=== PATIENT | female | born 1990 | race Caucasian/White ===

== ENCOUNTER 2017-03-04 00:43 | Emergency (ER) | payer OTHER ==
[~2017-03-04] VITALS: Ht 170.2 cm; Wt 90.0 kg
[2017-03-04 00:45] VITALS: BP 124/71; PULSE 91; RESP 16; O2SAT 98
--- NOTE | 2017-03-04 01:02 | ED.REPORT ---
HPI-Preg Under 20 Weeks Date of Service March 04, 2017 ED Provider: Marcelo Diggs MD A 14 week 26 year old female with no pertinent medical history presents to the ED due to vaginal bleeding. The pt stood up 40 minutes ago and experienced a significant amount of sudden vaginal bleeding with dark blood. The heavy bleeding stopped and she is now experiencing spotting with die welder discharge. heart tones at a rate of 150 were identified upon arrival to the hospital. The pt has not experienced any bleeding in prior to this episode. Her last ultrasound was one month ago. Nursing Notes Stated Complaint: VAGINAL BLEEDING/14 WEEKS Chief Complaint: & Delivery Nursing Notes Reviewed: Yes Allergies: Uncoded Allergies: SULFA (Adverse Reaction, Mild, Vomit/diarrhea, 03/04/17) General Time Seen by Provider: 01:01 Chief Complaint Vaginal bleeding Hx Obtained From: Patient Arrived By: Walk-in Onset Occurred: 31 - 45 minutes ago Recent Healthcare: No recent hospitalization, Recent doctor visit Similar Sx Previous: No Past Medical History Past Medical History none reported Past Surgical History none reported Smoking History Unknown if Ever Smoker Social History Other Social History: Good social support Ambulatory Status Independent Review of Systems Respiratory: Denies: Non-productive cough Cardiovascular: Denies: Chest pain Female: Reports: Vaginal bleeding - abnl Musculoskeletal: Denies: Back pain Skin: Denies Rash Complete sys rev & neg: except as marked. Physical Exam Initial Vital Signs Vital Signs (First) Date Time Temp Pulse Resp B/P Pulse Ox O2 Delivery O2 Flow Rate FiO2 03/04/17 00:45 36.6 91 16 124/71 98 Room Air Initial VS: Reviewed General/Constitutional: Awake, Alert Abdomen: Atraumatic, Soft, Non-tender Female Genitourinary: Exam deferred : Exam deferred ENT: Atraumatic, Airway patent, Mucous membranes moist Respiratory / Chest: Atraumatic, Breath sounds NL, Breath sounds = bilat, No respiratory distress Cardiovascular: Heart rate NL, Regular rhythm, Heart sounds NL Back: Atraumatic, Full range of motion Neurologic: Oriented X3, Speech NL, No motor deficits, No sensory deficits Head / Eyes: Atraumatic, Normocephalic, PERRL, EOMI Neck: Atraumatic, Supple, Full range of motion Upper Extremity / MS: Atraumatic, Full range of motion Lower Extremity / Pelvis / MS: Atraumatic, Full range of motion Skin: Atraumatic, Color NL, No rash, Warm, Dry Psychiatric: Affect NL, Mood NL Interpretation & Diagnostics Interpretation & Diagnostics: US : CONCLUSION: Complex focus of mixed echoes it appears retroplacental in the fundal region may represent subchorionic hemorrhage although abruption is not excluded. Intrauterine containing a single fetus demonstrating somatic and cardiac activity. Given gestational age 14 weeks and zero days. Lab Results Interpretation Result Diagram: 03/04/17 0257 Test 03/04/17 02:00 03/04/17 02:57 Hold Urine Received (Received) White Blood Count 7.7th/mm3 (3.8-10.1) Red Blood Count 3.97mil/mm3 (3.90-5.20) Hemoglobin 11.8g/dL (12.0-15.6) Hematocrit 34.0% (35.0-46.0) Mean Corpuscular Volume 85.6fL (81-100) Mean Corpuscular Hemoglobin 29.7pg (27.0-35.0) Mean Corpuscular Hemoglobin Concent 34.7% (32.0-37.0) Red Cell Distribution Width 12.3% (12.3-15.4) Platelet Count 198bil/L (150-400) Neutrophils (%) (Auto) 63.9% (40-74) Lymphocytes (%) (Auto) 27.2% (14-46) Monocytes (%) (Auto) 7.7% (4-12) Eosinophils (%) (Auto) 0.8% (0-5) Basophils (%) (Auto) 0.1% (0-3) Hold Wong Top Tube Received (Received) Re-Eval/Medical Decision Med Decision/Clinical Course 26-year-old Rh- female at 14 weeks in a previously uncomplicated . She had onset of heavy bleeding without pain around 1400 hrs. The bleeding has now tapered off. Ultrasound shows a retroplacental hemorrhage with a viable fetus. She was given minidose RhoGAM. Case was discussed with Dr. miner and with Dr. max. Patient will be sent home to follow up at [facility] tomorrow. She will return to the emergency room if there is significant worsening of her bleeding or severe cramping. Source of Hx: Old records Re-Evaluation/Progress #1: Time of Eval: 02:20 Patient Status: Condition improved Re-Evaluation/Progress Note: Pt rechecked, who is comfortable. She is not bleeding at this time. US results are discussed. Re-Evaluation/Progress #2: Time of Eval: 04:42 Patient Status: Condition improved Re-Evaluation/Progress Note: Pt rechecked, who is resting. Plan to consult with OB for follow up arrangement is discussed Re-Evaluation/Progress #3: Time of Eval: 05:00 Patient Status: Condition improved Re-Evaluation/Progress Note: Pt rechecked and follow up plan is discussed. The diagnosis and plan for discharge are discussed. The pt understands and agrees with the plan. All questions are addressed at this time. Consultation #1: Referral / Consult Name: Jenny Dotson MD Call Returned at: 03:38 Director Long Term Care: Agrees with eval, Agrees with plan Note: Consulted with Dr. Dotson, OB, regarding pt's case. Dr. Dotson feels that this is threatened miscarriage and recommends supportive treatment of the pt. Consultation #2: Referral / Consult Name: Cathy Heller MD Call Returned at: 04:52 Note: Consulted with Dr. Heller regarding pt's case. Dr. Heller agrees to see the pt in follow up. Counseled Regarding: Diagnosis, Lab results, Need for follow-up, When/why to return to ED Discharge & Departure Primary Impression: Threatened miscarriage Disposition: Home Discharge Condition All VS Reviewed: Yes Condition: Stable Patient Instructions: Threatened Miscarriage (ED) Additional Instructions: There is an area of bleeding behind the placenta. This is how miscarriage starts, but there is no way to predict at this point whether you will actually miscarry or not. Your blood count is okay and your vital signs are stable, indicating that you have not lost a dangerous amount of blood . Contact the on- call [facility] doctor or call me at [phone] between the hours of 9 PM and 6 AM for the next couple of nights if you have any questions or concerns. [facility] is closed Tuesday, but Dr. Heller would like you to be seen there on Tuesday for a recheck. You were given RhoGAM because you are Rh-. This helps prevent problems in the future with subsequent pregnancies. Referrals: Joana Romero MD (PCP) Cathy Heller MD Scribe Attestation Portions of this note were transcribed by Rosibel Pat. I, Dr. Diggs personally performed the history, physical exam and medical decision-making; I reviewed and confirmed the accuracy of the information in the transcribed note. Signed by: Jessica Faustin, 03/04/17 and 05. copies to: Cathy Heller MD; Joana Romero MD, Howard L MD March 04, 2017 01:02 ROSIBEL PAT March 04, 2017 01:10
[2017-03-04 03:00] LABS: BASOPHILS % (AUTO) 0.1 % (0-3); EOSINOPHILS % (AUTO) 0.8 % (0-5); MONOCYTES % (AUTO) 7.7 % (4-12); Mean Corpuscular Hemoglobin 29.7 pg (27.0-35.0); Mean Corpuscular Volume 85.6 fL (81-100); NEUTROPHILS % (AUTO) 63.9 % (40-74); Platelet Count 198 bil/L (150-400)
[2017-03-04] MEDS ORDERED: Rho(D) Immune Globulin 50 mCg Syringe IM ONE (04:20)
[2017-03-04 04:49] VITALS: BP 119/62; PULSE 77; RESP 16; O2SAT 98
[2017-03-04 05:19] VITALS: BP 119/62; PULSE 77; RESP 16; O2SAT 98
--- NOTE | 2017-03-04 08:14 | DRSVH ---
PROCEDURE: US OB 1 OR MORE FETUS LIMITED INDICATIONS: hemorrhage at 14 + weeks OUTSIDE/PRIOR DATING DATA: Last menstrual period (LMP): 11/24/2016. LMP-based estimated date of delivery (ABIGAIL): 08/31/2017. First dating scan (date and location): 01/19/2017. Estimated date of delivery (ABIGAIL) from first dating scan: 09/02/2017. TECHNIQUE: Real-time scanning was performed of the fetus, with image documentation and biometric measurements. COMPARISON: [facility], US, US OB<14 WKS+OB TRANSVAG, 01/19/2017, 10:23. FINDINGS: General: A single living intrauterine gestation is present. Presentation: Variable Placenta: Placental position is anterior fundal, without previa. Subchorionic hematomas present felix suring roughly 5.2 x 4.0 cm. There is slight retroplacental extension of the clot and developing rebekah cental abruption cannot be excluded. OB-COMPUTER CLERK Ultrasound Procedure Report Summary Fetus Summary Estimated Gestational Age from first dating scan: 14 weeks, 0 days Heart Rate: 151 bpm Findings(Amniotic Sac) Amniotic Fluid Index: Subjectively normal. Cervix Length: 3.2 cm Other: Not applicable. IMPRESSION: 1. 14 week 0 day single living IUP. 2. Moderate size subchorionic hematoma with slight retroplacental extension and developing abruption cannot be excluded. Recommend close clinical correlation and followup ultrasound. Note: These findings are concordant with the preliminary interpretation. Dictated by: Eduard GAGE Interpreted: Olayinka Srinivasan MD on 03/04/2017 at 8:10 Transcribed by: EDGARD on 03/04/2017 at 8:14 Approved by: Mario Alberto Srinivasan M.D. on 03/04/2017 at 8:46
== END 2017-03-04 05:15 | disposition home or self-care (01) ==
LOC: SED 00:43
DX: O20.0 Threatened abortion (principal); Z3A.14 14 weeks gestation of pregnancy; Z88.2 Allergy status to sulfonamides
CPT/HCPCS: 36415; 76815; 85025; 96372; 99285; J2788